=== PATIENT | female | born 1990 | race Hispanic/Latino ===

== ENCOUNTER 2019-04-17 16:22 | Emergency (ER) | payer SELFPAY ==
--- NOTE | 2019-04-17 17:44 | RAD REPORT ---
EXAM DESCRIPTION: RAD - Neck Soft Tissue - 04/17/2019 5:37 pm CLINICAL HISTORY: Neck pain/possible foreign body FINDINGS: A radiopaque foreign body is not visualized Prevertebral soft tissues normal. No gross abnormality of the airway noted
[2019-04-17] MEDS ORDERED: ONDANSETRON 4 MG (ODT) TAB ONE (18:12)
--- NOTE | 2019-04-17 18:53 | ER ---
Nurse's Notes [facility] Name: Mary Osman Age: 28 yrs Sex: Female : 1990 Arrival Date: 04/17/2019 Time: 16:26 Bed 14 Private MD: Diagnosis: Possible foreign body of throat Presentation: 04/16 16:39 Chief complaint: Patient states: was eating last night and felt like she got a piece of iw meat stuck in her throat, vomited last night , was able to drink water today without vomiting but still feels something stuck in her throat. Coronavirus screen: The patient has NOT traveled to [place] in the past 14 days. Proceed with normal triage procedures. Ebola Screen: Patient negative for fever greater than or equal to 101.5 degrees Fahrenheit, and additional compatible Ebola Virus Disease symptoms Patient denies exposure to infectious person. Patient denies travel to an Ebola-affected area in the 21 days before illness onset. No symptoms or risks identified at this time. Initial Sepsis Screen: Does the patient meet any 2 criteria? No. Patient's initial sepsis screen is negative. Does the patient have a suspected source of infection? No. Patient's initial sepsis screen is negative. Risk Assessment: Do you want to hurt yourself or someone else? Patient reports no desire to harm self or others. 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 - Social history:: Smoking status: Patient denies any tobacco usage or history of. Screenin:55 Abuse screen: Denies threats or abuse. Denies injuries from another. Nutritional ph screening: No deficits noted. Tuberculosis screening: No symptoms or risk factors identified. Fall Risk None identified. Assessment: 18:53 General: Appears in no apparent distress. comfortable, well groomed, Behavior is calm, ph cooperative, appropriate for age. Pain: Complains of pain in neck. Neuro: Level of Consciousness is awake, alert, obeys commands, Oriented to person, place, time, situation. Respiratory: Airway is patent Respiratory effort is even, unlabored, Respiratory pattern is regular, symmetrical, Denies shortness of breath. GI: Reports intolerance of fluids, intolerance of food, nausea, vomiting. Derm: Skin is intact, is healthy with good turgor, Skin is pink, warm \T\ dry. Musculoskeletal: Circulation, motion, and sensation intact. Range of motion: intact in all extremities. 19:14 Reassessment: Patient appears in no apparent distress at this time. Patient is alert, rr5 oriented x 3, equal unlabored respirations, skin warm/dry/pink. discharge instruction given and explained without complaints made. Vital Signs: 16:39 BP 170 / 121; Pulse 88; Resp 16; Temp 98.7; Pulse Ox 100% on R/A; Weight 76.66 kg; iw Height 5 ft. 4 in. (162.56 cm); 17:08 BP 148 / 103; Pulse 86; Resp 16; Pulse Ox 100% ; lt1 19:09 BP 136 / 81; Pulse 80; Resp 17; Temp 98.5; Pulse Ox 99% on R/A; rr5 16:39 Body Mass Index 29.01 (76.66 kg, 162.56 cm) iw ED Course: 16:26 Patient arrived in ED. rg4 16:42 Triage completed. iw 16:43 Arm band placed on. iw 16:50 Umer Mena PA is PHCP. cp 16:50 Enrique White MD is Attending Physician. cp 17:37 XRAY Neck Soft Tissue In Process Unspecified. EDMS 17:57 Raiza Carrero, RN is Primary Nurse. ph 18:51 Bean Watson MD is Referral Physician. cp 18:55 Patient has correct armband on for positive identification. Bed in low position. Call ph light in reach. Side rails up X 1. Pulse ox on. NIBP on. Door closed. Noise minimized. Warm blanket given. Head of bed elevated. 19:13 No provider procedures requiring assistance completed. Patient did not have IV access rr5 during this emergency room visit. Administered Medications: 18:26 Drug: Zofran (Ondansetron) 4 mg Route: PO; mg2 Outcome: 18:53 Discharge ordered by . cp 19:11 Patient left the ED. rr5 19:13 Discharged to home ambulatory. rr5 19:13 Condition: stable 19:13 Discharge instructions given to patient, family, Instructed on discharge instructions, follow up and referral plans. Demonstrated understanding of instructions, follow-up care. Signatures: Dispatcher [employer] Yanni Yeung, RN RN Raiza Hunter RN RN Umer Pretty PA PA cp Garcia, Rubi rg4 Saeid Laboy RN RN mg2 Demetris Gleason RN RN rr5 Lesa Ortiz [facility]
--- NOTE | 2019-04-17 18:54 | EDPHYS ---
Physician Documentation [facility] Name: Mary Osman Age: 28 yrs Sex: Female : 1990 Arrival Date: 04/17/2019 Time: 16:26 Bed 14 Private MD: ED Physician Enrique White HPI: 04/16 17:00 This 28 yrs old Female presents to ER via Ambulatory with complaints of Throat cp Problem. 17:00 The patient presents with sore throat, a foreign body sensation in the throat. cp 17:00 The patient describes throat pain as scratchy. Onset: The symptoms/episode cp began/occurred yesterday. Associated signs and symptoms: Pertinent negatives chest pain, cough, dysphagia, nausea, vomiting. Patient reports she was eating ribs yesterday and after eating a piece of rib meat, felt like she has a piece of meat stuck in her throat. 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 - Social history:: Smoking status: Patient denies any tobacco usage or history of. ROS: 17:05 Constitutional: Negative for body aches, chills, fever, poor PO intake. cp 17:05 Eyes: Negative for injury, pain, redness, and discharge. cp 17:05 ENT: Positive for foreign body sensation, sore throat, Negative for drainage from ear(s), ear pain, difficulty swallowing, difficulty handling secretions. 17:05 Cardiovascular: Negative for chest pain, palpitations. 17:05 Respiratory: Negative for cough, shortness of breath, wheezing. 17:05 Abdomen/GI: Negative for abdominal pain, nausea, vomiting, diarrhea, constipation. 17:05 Neuro: Negative for headache. 17:05 All other systems are negative. Exam: 17:15 Constitutional: The patient appears in no acute distress, alert, awake, comfortable, cp non-toxic, well developed, well nourished. 17:15 Head/Face: Normocephalic, atraumatic. cp 17:15 Eyes: Periorbital structures: appear normal, Conjunctiva: normal, Lids and lashes: appear normal, bilaterally. 17:15 ENT: External ear(s): are unremarkable, Ear canal(s): are normal, clear, TM's: dullness, bilaterally, Nose: is normal, Mouth: Lips: moist, Oral mucosa: pink and intact, moist, Posterior pharynx: is normal, airway is patent, no erythema, no exudate. 17:15 Neck: ROM/movement: is normal, is supple, without pain, no range of motions limitations, no nuchal rigidity, Lymph nodes: no appreciated lymphadenopathy. 17:15 Chest/axilla: Inspection: normal, Palpation: is normal, no crepitus, no tenderness. 17:15 Cardiovascular: Rate: normal, Rhythm: regular. 17:15 Respiratory: the patient does not display signs of respiratory distress, Respirations: normal, no use of accessory muscles, labored breathing, is not present, Breath sounds: are clear throughout, no decreased breath sounds, no stridor, no wheezing. 17:15 Abdomen/GI: Inspection: abdomen appears normal, Palpation: abdomen is soft and non-tender, in all quadrants. 17:15 Neuro: Orientation: to person, place \T\ time. Mentation: is normal. Vital Signs: 16:39 BP 170 / 121; Pulse 88; Resp 16; Temp 98.7; Pulse Ox 100% on R/A; Weight 76.66 kg; iw Height 5 ft. 4 in. (162.56 cm); 17:08 BP 148 / 103; Pulse 86; Resp 16; Pulse Ox 100% ; lt1 19:09 BP 136 / 81; Pulse 80; Resp 17; Temp 98.5; Pulse Ox 99% on R/A; rr5 16:39 Body Mass Index 29.01 (76.66 kg, 162.56 cm) iw MDM: 16:51 Patient medically screened. cp 17:00 Differential diagnosis: group A strep tonsillitis, pharyngitis, tonsillitis, uvulitis, cp esophageal foreign body. 18:00 Physician consultation: Bean Watson MD was called at 18:00, left message on voicemail. 18:31 Physician consultation: Bean Watson MD was called at 18:31, was contacted at 18:32, regarding patient's condition, outpatient follow-up, tomorrow, and will see patient in office, tomorrow. 18:52 Data reviewed: vital signs, nurses notes, radiologic studies, plain films. cp 18:52 Counseling: I had a detailed discussion with the patient and/or guardian regarding: the cp historical points, exam findings, and any diagnostic results supporting the discharge/admit diagnosis, radiology results, the need for outpatient follow up, for definitive care, a registered midwife, to return to the emergency department if symptoms worsen or persist or if there are any questions or concerns that arise at home. 18:52 ED course: VSS. Patient tolerating po fluids. Will discharge to home for continued cp monitoring. 04/16 17:22 Order name: Urine Dipstick--Ancillary (enter results) bd 04/16 17:22 Order name: Urine --Ancillary (enter results) bd 04/16 16:57 Order name: Blood Pressure Recheck; Complete Time: 17:09 cp 04/16 16:57 Order name: XRAY Neck Soft Tissue; Complete Time: 17:56 cp 04/16 17:56 Interpretation: Report reviewed. 04/16 16:57 Order name: Urine Dipstick-Ancillary (obtain specimen); Complete Time: 17:31 cp 04/16 16:57 Order name: Urine Test (obtain specimen); Complete Time: 17:31 cp 04/16 17:57 Order name: PO challenge; Complete Time: 19:09 cp Administered Medications: 18:26 Drug: Zofran (Ondansetron) 4 mg Route: PO; mg2 Disposition: 20:17 Co-signature as Attending Physician, Enrique White MD I agree with the assessment and tw4 plan of care. Disposition: 04/17/19 18:53 Discharged to Home. Impression: Possible foreign body of throat. - Condition is Stable. - Discharge Instructions: Swallowed Foreign Body, Adult. - Medication Reconciliation Form, Thank You Letter, Antibiotic Education, Prescription Opioid Use form. - Follow up: Bean Watson MD; When: Tomorrow; Reason: Recheck today's complaints. - Problem is new. - Symptoms are unchanged. Signatures: Dispatcher [employer] EDMS Yanni Gallardo RN RN iw Umer Mena PA PA Enrique Borrero MD MD tw4 Saeid Laboy RN RN mg2 Gleason, Demetris, RN RN rr5 Corrections: (The following items were deleted from the chart) 19:11 18:53 04/17/2019 18:53 Discharged to Home. Impression: Possible foreign body of throat. rr5 Condition is Stable. Forms are Medication Reconciliation Form, Thank You Letter, Antibiotic Education, Prescription Opioid Use. Follow up: Bean Watson; When: Tomorrow; Reason: Recheck today's complaints. Problem is new. Symptoms are unchanged. cp
[2019-04-17 20:34] LABS: Urine Blood 3+ (NEG); Urine Glucose NEGATIVE (NEG); Urine Protein NEGATIVE (NEG)
[2019-04-17 21:01] VITALS: BP 136/81; TEMP 98.5
[2019-04-17 21:11] VITALS: O2SAT 100
== END 2019-04-17 19:11 | disposition home or self-care (01) ==
LOC: ER 16:22
DX: R07.0 Pain in throat (principal); Z88.1 Allergy status to other antibiotic agents
CPT/HCPCS: 70360; 81003; 81025; 99284